=== PATIENT | female | born 1955 | race Hispanic/Latino ===

== ENCOUNTER 2019-06-04 10:49 | Emergency (ER) | payer OTHER ==
[~2019-06-04] VITALS: Ht 154.9 cm; Wt 96.0 kg
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
[2019-06-04] MEDS ORDERED: ULTRAM 50MG50 MG PO (23:31)
== END 2019-06-04 14:35 | disposition home or self-care (01) ==
LOC: FSED 10:49
DX: M54.2 Cervicalgia (principal); M25.522 Pain in left elbow; M79.622 Pain in left upper arm; V43.52XA Car driver injured in collision with other type car in traffic accident, initial encounter; Y92.488 Other paved roadways as the place of occurrence of the external cause
CPT/HCPCS: 72125; 99283

== ENCOUNTER 2019-06-04 20:10 | Emergency (ER) | payer OTHER ==
[~2019-06-04] VITALS: Ht 154.9 cm; Wt 95.7 kg
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
--- NOTE | 2019-06-04 22:33 | NUR ---
patient taken to mri
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
[2019-06-04] MEDS ORDERED: ULTRAM 50MG50 MG PO (23:31)
[2019-06-05 01:29] VITALS: BP 121/91
== END 2019-06-05 01:47 | disposition home or self-care (01) ==
LOC: ER 20:10
DX: M54.2 Cervicalgia (principal); S13.4XXA Sprain of ligaments of cervical spine, initial encounter; M54.12 Radiculopathy, cervical region; V43.52XA Car driver injured in collision with other type car in traffic accident, initial encounter; Y92.488 Other paved roadways as the place of occurrence of the external cause
CPT/HCPCS: 72141; 99284

== ENCOUNTER 2020-11-22 17:25 | Inpatient (IN) | payer OTHER ==
[~2020-11-22] VITALS: Ht 160 cm; Wt 88.9 kg
[~2020-11-22 17:25] MED LIST: ULTRAM 50MG50 MG PO
[2020-11-22] MEDS ORDERED: AZITHROMYCIN 500MG/NS 250 ML 250 ML IV ONE (17:45)
[2020-11-22] MEDS ORDERED: CEFTRIAXONE SOD 1 GM/NS 50 ML 50 ML IV ONE (17:45)
[2020-11-22] MEDS ORDERED: ACETAMINOPHEN 325 MG TAB PO ONE (17:45)
[2020-11-22] MEDS ORDERED: DEXAMETHASONE SOD PHOS 10 MG/1 ML VIAL IV NR (17:45)
[2020-11-22 18:34] LABS: BASOPHILS % 0.1 % (0.0-1.0); HEMATOCRIT 39.1 % (34.2-44.1); HEMOGLOBIN 12.9 g/dL (12.0-16.0); LYMPHOCYTES # (AUTO) 1.2 (1.0-3.2); LYMPHOCYTES % 14.5 % (18.0-39.1); MEAN CORPUSCULAR HEMOGLOBIN 29.7 pg (28-32); MEAN CORPUSCULAR VOLUME 90.1 fL (81-99); MONOCYTES # (AUTO) 0.4 (0.2-0.8); MONOCYTES % 4.2 % (4.4-11.3); NEUTROPHILS # (AUTO) 6.7 (2.1-6.9); NEUTROPHILS % 80.2 % (38.7-80.0); PLATELET COUNT 181 x10e3/uL (140-360); RED BLOOD COUNT 4.34 x10e6/uL (3.6-5.1); RED CELL DISTRIBUTION WIDTH 12.1 % (11.7-14.4)
[2020-11-22 18:40] LABS: CLARITY,URINE SL CLOUDY (CLEAR); COLOR,URINE YELLOW (YELLOW); LEUKOCYTE ESTERASE ,URINE NEGATIVE (NEGATIVE); NITRITE,URINE NEGATIVE (NEGATIVE)
[2020-11-22 18:41] LABS: KETONES,URINE NEGATIVE (NEGATIVE); PROTEIN,URINE DIPSTICK 2+ (NEGATIVE); URINE UROBILINOGEN 1 mg/dL (0.2 - 1)
[2020-11-22 18:49] LABS: ALANINE AMINOTRANSFERASE 61 IU/L (0-55); ALBUMIN 3.1 g/dL (3.5-5.0); ALBUMIN/GLOBULIN RATIO 0.7 (0.8-2.0); ALKALINE PHOSPHATASE 85 IU/L (40-150); ANION GAP 14.5 mmol/L (8-16); BLOOD UREA NITROGEN < 5 mg/dL (7-26); CALCIUM 8.4 mg/dL (8.4-10.2); CARBON DIOXIDE 25 mmol/L (22-29); CHLORIDE 96 mmol/L (98-107); CREATINE KINASE 63 IU/L (29-168); CREATININE, SERUM 0.59 mg/dL (0.57-1.11); EST GLOMERULAR FILTRATION RATE > 60 ML/MIN (60-); GLUCOSE 109 mg/dL (74-118); POTASSIUM 3.5 mmol/L (3.5-5.1); SODIUM 132 mmol/L (136-145)
[2020-11-22 18:51] LABS: BUN/CREATININE RATIO 8 (6-25)
[2020-11-22] MEDS ORDERED: CEFTRIAXONE SOD 1 GM VIAL ONE (18:51)
[2020-11-22 18:56] LABS: BACTERIA,URINE FEW /HPF
[2020-11-22] MEDS ORDERED: ONDANSETRON HCL INJ 2MG/ML 2ML 2 MG/ML VIAL IV PRN (22:30)
[2020-11-22] MEDS ORDERED: SODIUM CHLORIDE 0.9% 1000ML 1,000 ML IV ONE (22:30)
[2020-11-23] VITALS (12 sets, daily range): BP systolic 130–162; BP diastolic 73–111
[2020-11-23] MEDS ORDERED: MONTELUKAST SOD10 MG PO (01:09)
[2020-11-23] MEDS ORDERED: CETIRIZINE HCL10 MG PO (01:09)
[2020-11-23] MEDS ORDERED: METFORMIN HCL500 MG PO (01:09)
[2020-11-23] MEDS ORDERED: SYMBICORT 80-10.2 GM INH (01:09)
[2020-11-23 04:51] LABS: HEMATOCRIT 40.1 % (34.2-44.1); HEMOGLOBIN 13.1 g/dL (12.0-16.0); LYMPHOCYTES # (AUTO) 0.9 (1.0-3.2); LYMPHOCYTES % 16.2 % (18.0-39.1); MEAN CORPUSCULAR HEMOGLOBIN 29.5 pg (28-32); MEAN CORPUSCULAR HGB CONC 32.7 g/dL (31-35); MEAN CORPUSCULAR VOLUME 90.3 fL (81-99); MONOCYTES # (AUTO) 0.1 (0.2-0.8); MONOCYTES % 1.8 % (4.4-11.3); NEUTROPHILS # (AUTO) 4.5 (2.1-6.9); NEUTROPHILS % 81.5 % (38.7-80.0); PLATELET COUNT 196 x10e3/uL (140-360); RED BLOOD COUNT 4.44 x10e6/uL (3.6-5.1); RED CELL DISTRIBUTION WIDTH 11.9 % (11.7-14.4)
[2020-11-23 05:07] LABS: ALANINE AMINOTRANSFERASE 57 IU/L (0-55); ALBUMIN 2.7 g/dL (3.5-5.0); ALBUMIN/GLOBULIN RATIO 0.6 (0.8-2.0); ALKALINE PHOSPHATASE 80 IU/L (40-150); BLOOD UREA NITROGEN 8 mg/dL (7-26); BUN/CREATININE RATIO 14 (6-25); CALCIUM 8.5 mg/dL (8.4-10.2); CARBON DIOXIDE 25 mmol/L (22-29); CHLORIDE 103 mmol/L (98-107); CREATININE, SERUM 0.58 mg/dL (0.57-1.11); EST GLOMERULAR FILTRATION RATE > 60 ML/MIN (60-); GLUCOSE 145 mg/dL (74-118); SODIUM 138 mmol/L (136-145)
[2020-11-23 05:46] LABS: CREATINE KINASE MB 0.7 ng/mL (0-5.0)
[2020-11-23 07:03] LABS: LYMPHOCYTES % (MANUAL) 10 % (19-48); NEUTROPHILS % (MANUAL) 87 % (40-74); PLATELET ESTIMATE ADEQUATE; PLATELET MORPHOLOGY COMMENT NORMAL; RBC MORPHOLOGY COMMENT NORMAL
[2020-11-23 07:04] LABS: MONOCYTES % (MANUAL) 1 % (3.4-9.0)
[2020-11-23] MEDS: ZINC SULFATE 220 MG CAP PO SCH (08:39)
[2020-11-23] MEDS: ASCORBIC ACID 500 MG TAB PO SCH ×2 (08:39→16:29)
[2020-11-23] MEDS: CEFTRIAXONE SOD 2 GM/NS 100 ML 100 ML IV SCH (08:39)
[2020-11-23] MEDS ORDERED: ENOXAPARIN INJ 80 MG/0.8 ML SYR SC SCH (09:00)
[2020-11-23] MEDS: AZITHROMYCIN 500MG/NS 250 ML 250 ML IV SCH (09:45)
[2020-11-23] MEDS ORDERED: NON-FORMULARY MEDICATION (Cetirizine Hcl 10 MG) PO PRN (10:45)
[2020-11-23] MEDS ORDERED: DEXTROSE 50% SYRINGE 50 ML IV PRN (11:00)
[2020-11-23] MEDS ORDERED: LORATADINE 10 MG TAB PO PRN (11:00)
[2020-11-23] MEDS ORDERED: ACETAMINOPHEN 325 MG TAB PO PRN (11:00)
[2020-11-23] MEDS: INSULIN LISPRO 100 UNIT/1 ML 3ML VIAL SQ SCH ×3 (11:30→20:36)
[2020-11-23] MEDS: ENOXAPARIN 30 MG/0.3 ML SYR SC SCH ×2 (12:26→20:39)
[2020-11-23] MEDS ORDERED: REMDESIVIR 200MG/NS 100ML 200 MG IV ONE (14:00)
[2020-11-23] MEDS: MONTELUKAST SODIUM 10 MG TAB PO SCH (14:08)
[2020-11-23 14:51] LABS: CREATINE KINASE MB 0.6 ng/mL (0-5.0)
[2020-11-23] MEDS: BUDESONIDE/FORMOTEROL FUMARATE 80/4.5MCG 6.9 GM INH AEROSOL IH SCH (20:00)
[2020-11-24] VITALS (9 sets, daily range): BP systolic 147–185; BP diastolic 90–103
[2020-11-24 04:47] LABS: BASOPHILS % 0.1 % (0.0-1.0); HEMOGLOBIN 12.4 g/dL (12.0-16.0); LYMPHOCYTES # (AUTO) 1.9 (1.0-3.2); LYMPHOCYTES % 18.3 % (18.0-39.1); MEAN CORPUSCULAR HEMOGLOBIN 29.3 pg (28-32); MEAN CORPUSCULAR HGB CONC 32.6 g/dL (31-35); MEAN CORPUSCULAR VOLUME 89.8 fL (81-99); MONOCYTES # (AUTO) 0.5 (0.2-0.8); NEUTROPHILS # (AUTO) 7.8 (2.1-6.9); NEUTROPHILS % 75.8 % (38.7-80.0); PLATELET COUNT 234 x10e3/uL (140-360); RED BLOOD COUNT 4.23 x10e6/uL (3.6-5.1); RED CELL DISTRIBUTION WIDTH 12.1 % (11.7-14.4)
[2020-11-24 05:12] LABS: ALANINE AMINOTRANSFERASE 41 IU/L (0-55); ALBUMIN 2.6 g/dL (3.5-5.0); ALBUMIN/GLOBULIN RATIO 0.6 (0.8-2.0); ALKALINE PHOSPHATASE 77 IU/L (40-150); ANION GAP 14.6 mmol/L (8-16); BLOOD UREA NITROGEN 12 mg/dL (7-26); BUN/CREATININE RATIO 21 (6-25); CALCIUM 8.3 mg/dL (8.4-10.2); CARBON DIOXIDE 23 mmol/L (22-29); CHLORIDE 102 mmol/L (98-107); CREATININE, SERUM 0.58 mg/dL (0.57-1.11); EST GLOMERULAR FILTRATION RATE > 60 ML/MIN (60-); GLUCOSE 101 mg/dL (74-118); POTASSIUM 3.6 mmol/L (3.5-5.1); SODIUM 136 mmol/L (136-145)
[2020-11-24] MEDS: BUDESONIDE/FORMOTEROL FUMARATE 80/4.5MCG 6.9 GM INH AEROSOL IH SCH ×2 (06:33→19:00)
[2020-11-24] MEDS: INSULIN LISPRO 100 UNIT/1 ML 3ML VIAL SQ SCH ×4 (07:30→21:00)
[2020-11-24 07:35] LABS: BAND NEUTROPHILS % (MANUAL) 1 %; LYMPHOCYTES % (MANUAL) 27 % (19-48); MONOCYTES % (MANUAL) 3 % (3.4-9.0); NEUTROPHILS % (MANUAL) 69 % (40-74); PLATELET ESTIMATE ADEQUATE; PLATELET MORPHOLOGY COMMENT NORMAL; RBC MORPHOLOGY COMMENT NORMAL
[2020-11-24] MEDS: MONTELUKAST SODIUM 10 MG TAB PO SCH (08:10)
[2020-11-24] MEDS: ASCORBIC ACID 500 MG TAB PO SCH ×2 (08:10→17:50)
[2020-11-24] MEDS: ENOXAPARIN 30 MG/0.3 ML SYR SC SCH ×2 (08:10→21:32)
[2020-11-24] MEDS: AZITHROMYCIN 500MG/NS 250 ML 250 ML IV SCH (08:10)
[2020-11-24] MEDS: ZINC SULFATE 220 MG CAP PO SCH (08:10)
[2020-11-24] MEDS: CEFTRIAXONE SOD 2 GM/NS 100 ML 100 ML IV SCH (09:48)
[2020-11-24] MEDS ORDERED: LOSARTAN POTASSIUM 25 MG TAB PO PRN (11:00)
[2020-11-24] MEDS: REMDESIVIR 100MG/NS 100ML 100 MG IV SCH (13:44)
[2020-11-25] VITALS (8 sets, daily range): BP systolic 143–161; BP diastolic 85–95
[2020-11-25 05:16] LABS: BASOPHILS % 0.3 % (0.0-1.0); EOSINOPHILS % 0.1 % (0.0-6.0); HEMATOCRIT 40.2 % (34.2-44.1); HEMOGLOBIN 13.2 g/dL (12.0-16.0); LYMPHOCYTES # (AUTO) 2.6 (1.0-3.2); LYMPHOCYTES % 37.6 % (18.0-39.1); MEAN CORPUSCULAR HEMOGLOBIN 29.3 pg (28-32); MEAN CORPUSCULAR HGB CONC 32.8 g/dL (31-35); MEAN CORPUSCULAR VOLUME 89.3 fL (81-99); MONOCYTES # (AUTO) 0.5 (0.2-0.8); MONOCYTES % 7.6 % (4.4-11.3); NEUTROPHILS # (AUTO) 3.6 (2.1-6.9); NEUTROPHILS % 52.8 % (38.7-80.0); PLATELET COUNT 266 x10e3/uL (140-360); RED CELL DISTRIBUTION WIDTH 12.2 % (11.7-14.4)
[2020-11-25 05:40] LABS: ALANINE AMINOTRANSFERASE 34 IU/L (0-55); ALBUMIN 2.7 g/dL (3.5-5.0); ALBUMIN/GLOBULIN RATIO 0.6 (0.8-2.0); ALKALINE PHOSPHATASE 77 IU/L (40-150); ANION GAP 14.5 mmol/L (8-16); BLOOD UREA NITROGEN 11 mg/dL (7-26); BUN/CREATININE RATIO 19 (6-25); CALCIUM 8.5 mg/dL (8.4-10.2); CARBON DIOXIDE 24 mmol/L (22-29); CHLORIDE 100 mmol/L (98-107); CREATININE, SERUM 0.58 mg/dL (0.57-1.11); EST GLOMERULAR FILTRATION RATE > 60 ML/MIN (60-); GLUCOSE 94 mg/dL (74-118); POTASSIUM 3.5 mmol/L (3.5-5.1); SODIUM 135 mmol/L (136-145)
[2020-11-25] MEDS: INSULIN LISPRO 100 UNIT/1 ML 3ML VIAL SQ SCH ×4 (07:30→21:00)
[2020-11-25] MEDS: AZITHROMYCIN 500MG/NS 250 ML 250 ML IV SCH (09:05)
[2020-11-25] MEDS: MONTELUKAST SODIUM 10 MG TAB PO SCH (09:05)
[2020-11-25] MEDS: ASCORBIC ACID 500 MG TAB PO SCH ×2 (09:05→15:55)
[2020-11-25] MEDS: ENOXAPARIN 30 MG/0.3 ML SYR SC SCH ×2 (09:06→21:34)
[2020-11-25] MEDS: ZINC SULFATE 220 MG CAP PO SCH (09:06)
[2020-11-25] MEDS: CEFTRIAXONE SOD 2 GM/NS 100 ML 100 ML IV SCH (11:48)
[2020-11-25] MEDS: BUDESONIDE/FORMOTEROL FUMARATE 80/4.5MCG 6.9 GM INH AEROSOL IH SCH ×2 (11:49→19:00)
[2020-11-25] MEDS: REMDESIVIR 100MG/NS 100ML 100 MG IV SCH (14:40)
[2020-11-26] VITALS (8 sets, daily range): BP systolic 141–158; BP diastolic 78–88
[2020-11-26] MEDS: BUDESONIDE/FORMOTEROL FUMARATE 80/4.5MCG 6.9 GM INH AEROSOL IH SCH ×2 (07:00→19:00)
[2020-11-26] MEDS: INSULIN LISPRO 100 UNIT/1 ML 3ML VIAL SQ SCH ×4 (07:30→20:17)
[2020-11-26] MEDS: ASCORBIC ACID 500 MG TAB PO SCH ×2 (09:08→17:16)
[2020-11-26] MEDS: ENOXAPARIN 30 MG/0.3 ML SYR SC SCH ×2 (09:08→20:22)
[2020-11-26] MEDS: ZINC SULFATE 220 MG CAP PO SCH (09:08)
[2020-11-26] MEDS: MONTELUKAST SODIUM 10 MG TAB PO SCH (09:08)
[2020-11-26] MEDS: CEFTRIAXONE SOD 2 GM/NS 100 ML 100 ML IV SCH (09:08)
[2020-11-26] MEDS: REMDESIVIR 100MG/NS 100ML 100 MG IV SCH (14:14)
[2020-11-27] VITALS (8 sets, daily range): BP systolic 118–148; BP diastolic 69–81
[2020-11-27 05:43] LABS: BASOPHILS % 0.4 % (0.0-1.0); EOSINOPHILS # (AUTO) 0.1 (0.0-0.4); EOSINOPHILS % 0.9 % (0.0-6.0); HEMATOCRIT 37.4 % (34.2-44.1); HEMOGLOBIN 12.5 g/dL (12.0-16.0); LYMPHOCYTES # (AUTO) 2.1 (1.0-3.2); LYMPHOCYTES % 31.6 % (18.0-39.1); MEAN CORPUSCULAR HGB CONC 33.4 g/dL (31-35); MEAN CORPUSCULAR VOLUME 89.7 fL (81-99); MONOCYTES # (AUTO) 0.5 (0.2-0.8); MONOCYTES % 7.7 % (4.4-11.3); NEUTROPHILS % 58.4 % (38.7-80.0); PLATELET COUNT 326 x10e3/uL (140-360); RED BLOOD COUNT 4.17 x10e6/uL (3.6-5.1); RED CELL DISTRIBUTION WIDTH 11.9 % (11.7-14.4)
[2020-11-27 06:16] LABS: ALANINE AMINOTRANSFERASE 20 IU/L (0-55); ALBUMIN 2.6 g/dL (3.5-5.0); ALBUMIN/GLOBULIN RATIO 0.7 (0.8-2.0); ALKALINE PHOSPHATASE 68 IU/L (40-150); ANION GAP 12.7 mmol/L (8-16); BLOOD UREA NITROGEN 12 mg/dL (7-26); BUN/CREATININE RATIO 21 (6-25); CALCIUM 8.1 mg/dL (8.4-10.2); CARBON DIOXIDE 25 mmol/L (22-29); CHLORIDE 102 mmol/L (98-107); CREATININE, SERUM 0.56 mg/dL (0.57-1.11); EST GLOMERULAR FILTRATION RATE > 60 ML/MIN (60-); GLUCOSE 87 mg/dL (74-118); POTASSIUM 3.7 mmol/L (3.5-5.1); SODIUM 136 mmol/L (136-145)
[2020-11-27] MEDS: BUDESONIDE/FORMOTEROL FUMARATE 80/4.5MCG 6.9 GM INH AEROSOL IH SCH ×2 (07:00→08:00)
[2020-11-27] MEDS: INSULIN LISPRO 100 UNIT/1 ML 3ML VIAL SQ SCH ×4 (07:04→21:00)
[2020-11-27] MEDS: ZINC SULFATE 220 MG CAP PO SCH (08:10)
[2020-11-27] MEDS: MONTELUKAST SODIUM 10 MG TAB PO SCH (08:10)
[2020-11-27] MEDS: CEFTRIAXONE SOD 2 GM/NS 100 ML 100 ML IV SCH (08:10)
[2020-11-27] MEDS: ASCORBIC ACID 500 MG TAB PO SCH ×2 (08:10→17:45)
[2020-11-27] MEDS: ENOXAPARIN 30 MG/0.3 ML SYR SC SCH ×2 (08:10→21:36)
[2020-11-27] MEDS: REMDESIVIR 100MG/NS 100ML 100 MG IV SCH (14:15)
[2020-11-28] VITALS (8 sets, daily range): BP systolic 119–150; BP diastolic 60–75
[2020-11-28 05:00] LABS: BASOPHILS % 0.4 % (0.0-1.0); EOSINOPHILS # (AUTO) 0.1 (0.0-0.4); EOSINOPHILS % 1.1 % (0.0-6.0); HEMATOCRIT 38.6 % (34.2-44.1); HEMOGLOBIN 12.1 g/dL (12.0-16.0); LYMPHOCYTES % 27.1 % (18.0-39.1); MEAN CORPUSCULAR HGB CONC 31.3 g/dL (31-35); MEAN CORPUSCULAR VOLUME 92.6 fL (81-99); MONOCYTES # (AUTO) 0.5 (0.2-0.8); MONOCYTES % 7.4 % (4.4-11.3); NEUTROPHILS # (AUTO) 4.6 (2.1-6.9); NEUTROPHILS % 63.2 % (38.7-80.0); PLATELET COUNT 295 x10e3/uL (140-360); RED BLOOD COUNT 4.17 x10e6/uL (3.6-5.1); RED CELL DISTRIBUTION WIDTH 12.1 % (11.7-14.4)
[2020-11-28 05:39] LABS: ALANINE AMINOTRANSFERASE 30 IU/L (0-55); ALBUMIN 2.4 g/dL (3.5-5.0); ALBUMIN/GLOBULIN RATIO 0.6 (0.8-2.0); ALKALINE PHOSPHATASE 65 IU/L (40-150); ANION GAP 13.7 mmol/L (8-16); BLOOD UREA NITROGEN 12 mg/dL (7-26); BUN/CREATININE RATIO 24 (6-25); CALCIUM 7.9 mg/dL (8.4-10.2); CARBON DIOXIDE 24 mmol/L (22-29); CHLORIDE 103 mmol/L (98-107); CREATININE, SERUM 0.51 mg/dL (0.57-1.11); EST GLOMERULAR FILTRATION RATE > 60 ML/MIN (60-); GLUCOSE 92 mg/dL (74-118); POTASSIUM 3.7 mmol/L (3.5-5.1); SODIUM 137 mmol/L (136-145)
[2020-11-28] MEDS: INSULIN LISPRO 100 UNIT/1 ML 3ML VIAL SQ SCH ×4 (07:30→20:30)
[2020-11-28] MEDS: BUDESONIDE/FORMOTEROL FUMARATE 80/4.5MCG 6.9 GM INH AEROSOL IH SCH (08:00)
[2020-11-28] MEDS: ZINC SULFATE 220 MG CAP PO SCH (09:36)
[2020-11-28] MEDS: MONTELUKAST SODIUM 10 MG TAB PO SCH (09:36)
[2020-11-28] MEDS: DEXAMETHASONE SOD PHOS 10 MG/1 ML VIAL IV SCH (09:36)
[2020-11-28] MEDS: ASCORBIC ACID 500 MG TAB PO SCH ×2 (09:36→16:20)
[2020-11-28] MEDS: ENOXAPARIN 30 MG/0.3 ML SYR SC SCH ×2 (09:36→20:38)
[2020-11-29] VITALS (8 sets, daily range): BP systolic 113–140; BP diastolic 68–99
[2020-11-29 05:30] LABS: BASOPHILS % 0.3 % (0.0-1.0); EOSINOPHILS % 0.3 % (0.0-6.0); HEMATOCRIT 39.4 % (34.2-44.1); HEMOGLOBIN 12.9 g/dL (12.0-16.0); LYMPHOCYTES # (AUTO) 2.3 (1.0-3.2); LYMPHOCYTES % 24.3 % (18.0-39.1); MEAN CORPUSCULAR HEMOGLOBIN 29.1 pg (28-32); MEAN CORPUSCULAR HGB CONC 32.7 g/dL (31-35); MEAN CORPUSCULAR VOLUME 88.7 fL (81-99); MONOCYTES # (AUTO) 0.8 (0.2-0.8); MONOCYTES % 8.3 % (4.4-11.3); NEUTROPHILS # (AUTO) 6.3 (2.1-6.9); NEUTROPHILS % 65.8 % (38.7-80.0); PLATELET COUNT 390 x10e3/uL (140-360); RED BLOOD COUNT 4.44 x10e6/uL (3.6-5.1); RED CELL DISTRIBUTION WIDTH 11.9 % (11.7-14.4)
[2020-11-29 05:47] LABS: ALANINE AMINOTRANSFERASE 51 IU/L (0-55); ALBUMIN/GLOBULIN RATIO 0.7 (0.8-2.0); ALKALINE PHOSPHATASE 76 IU/L (40-150); ANION GAP 14.1 mmol/L (8-16); BLOOD UREA NITROGEN 12 mg/dL (7-26); BUN/CREATININE RATIO 21 (6-25); CALCIUM 8.5 mg/dL (8.4-10.2); CARBON DIOXIDE 23 mmol/L (22-29); CHLORIDE 104 mmol/L (98-107); CREATININE, SERUM 0.58 mg/dL (0.57-1.11); EST GLOMERULAR FILTRATION RATE > 60 ML/MIN (60-); GLUCOSE 97 mg/dL (74-118); POTASSIUM 4.1 mmol/L (3.5-5.1); SODIUM 137 mmol/L (136-145)
[2020-11-29] MEDS: BUDESONIDE/FORMOTEROL FUMARATE 80/4.5MCG 6.9 GM INH AEROSOL IH SCH (07:21)
[2020-11-29] MEDS: INSULIN LISPRO 100 UNIT/1 ML 3ML VIAL SQ SCH ×4 (07:30→20:14)
[2020-11-29] MEDS: ZINC SULFATE 220 MG CAP PO SCH (08:57)
[2020-11-29] MEDS: ASCORBIC ACID 500 MG TAB PO SCH ×2 (08:57→17:16)
[2020-11-29] MEDS: MONTELUKAST SODIUM 10 MG TAB PO SCH (08:57)
[2020-11-29] MEDS: DEXAMETHASONE SOD PHOS 10 MG/1 ML VIAL IV SCH (08:57)
[2020-11-29] MEDS: ENOXAPARIN 30 MG/0.3 ML SYR SC SCH ×2 (08:57→20:42)
[2020-11-29] MEDS ORDERED: SODIUM CHLORIDE 0.9% 250ML 250 ML ONE (16:36)
[2020-11-29] MEDS: PIPER-TAZ 3.375 GM 50 ML IV SCH ×2 (17:16→23:44)
[2020-11-30] VITALS (7 sets, daily range): BP systolic 111–135; BP diastolic 68–78
[2020-11-30 04:54] LABS: BASOPHILS % 0.1 % (0.0-1.0); EOSINOPHILS # (AUTO) 0.1 (0.0-0.4); EOSINOPHILS % 0.6 % (0.0-6.0); HEMATOCRIT 38.7 % (34.2-44.1); HEMOGLOBIN 12.7 g/dL (12.0-16.0); LYMPHOCYTES # (AUTO) 2.4 (1.0-3.2); LYMPHOCYTES % 28.3 % (18.0-39.1); MEAN CORPUSCULAR HEMOGLOBIN 29.2 pg (28-32); MEAN CORPUSCULAR HGB CONC 32.8 g/dL (31-35); MONOCYTES # (AUTO) 0.5 (0.2-0.8); MONOCYTES % 6.4 % (4.4-11.3); NEUTROPHILS # (AUTO) 5.4 (2.1-6.9); PLATELET COUNT 443 x10e3/uL (140-360); RED BLOOD COUNT 4.35 x10e6/uL (3.6-5.1); RED CELL DISTRIBUTION WIDTH 11.9 % (11.7-14.4)
[2020-11-30 05:10] LABS: ANION GAP 12.1 mmol/L (8-16); BLOOD UREA NITROGEN 14 mg/dL (7-26); BUN/CREATININE RATIO 23 (6-25); CALCIUM 8.5 mg/dL (8.4-10.2); CARBON DIOXIDE 25 mmol/L (22-29); CHLORIDE 104 mmol/L (98-107); CREATININE, SERUM 0.62 mg/dL (0.57-1.11); EST GLOMERULAR FILTRATION RATE > 60 ML/MIN (60-); GLUCOSE 87 mg/dL (74-118); POTASSIUM 4.1 mmol/L (3.5-5.1); SODIUM 137 mmol/L (136-145)
[2020-11-30] MEDS: PIPER-TAZ 3.375 GM 50 ML IV SCH ×4 (05:16→23:46)
[2020-11-30] MEDS: INSULIN LISPRO 100 UNIT/1 ML 3ML VIAL SQ SCH ×4 (07:30→19:48)
[2020-11-30] MEDS: BUDESONIDE/FORMOTEROL FUMARATE 80/4.5MCG 6.9 GM INH AEROSOL IH SCH (08:00)
[2020-11-30] MEDS: ZINC SULFATE 220 MG CAP PO SCH (08:53)
[2020-11-30] MEDS: DEXAMETHASONE SOD PHOS 10 MG/1 ML VIAL IV SCH (08:53)
[2020-11-30] MEDS: ASCORBIC ACID 500 MG TAB PO SCH ×2 (08:53→16:53)
[2020-11-30] MEDS: MONTELUKAST SODIUM 10 MG TAB PO SCH (08:53)
[2020-11-30] MEDS: ENOXAPARIN 30 MG/0.3 ML SYR SC SCH (08:53)
[2020-12-01] VITALS (8 sets, daily range): BP systolic 128–145; BP diastolic 63–79
[2020-12-01] MEDS: PIPER-TAZ 3.375 GM 50 ML IV SCH ×3 (06:08→17:03)
[2020-12-01] MEDS: INSULIN LISPRO 100 UNIT/1 ML 3ML VIAL SQ SCH ×4 (07:30→21:00)
[2020-12-01] MEDS: BUDESONIDE/FORMOTEROL FUMARATE 80/4.5MCG 6.9 GM INH AEROSOL IH SCH ×2 (08:00→20:20)
[2020-12-01] MEDS: DEXAMETHASONE SOD PHOS 10 MG/1 ML VIAL IV SCH (09:13)
[2020-12-01] MEDS: ASCORBIC ACID 500 MG TAB PO SCH ×2 (09:14→16:46)
[2020-12-01] MEDS: MONTELUKAST SODIUM 10 MG TAB PO SCH (09:14)
[2020-12-01] MEDS: ZINC SULFATE 220 MG CAP PO SCH (09:14)
[2020-12-01] MEDS: ENOXAPARIN SOD INJ 40 MG/0.4 ML SYR SC SCH (17:03)
[2020-12-02] VITALS (8 sets, daily range): BP systolic 126–138; BP diastolic 63–86
[2020-12-02] MEDS: PIPER-TAZ 3.375 GM 50 ML IV SCH ×4 (00:04→17:29)
[2020-12-02] MEDS: ENOXAPARIN SOD INJ 40 MG/0.4 ML SYR SC SCH ×2 (06:37→17:29)
[2020-12-02] MEDS: INSULIN LISPRO 100 UNIT/1 ML 3ML VIAL SQ SCH ×4 (07:30→21:00)
[2020-12-02] MEDS: BUDESONIDE/FORMOTEROL FUMARATE 80/4.5MCG 6.9 GM INH AEROSOL IH SCH ×2 (08:00→19:00)
[2020-12-02] MEDS: ASCORBIC ACID 500 MG TAB PO SCH ×2 (09:10→16:47)
[2020-12-02] MEDS: ZINC SULFATE 220 MG CAP PO SCH (09:10)
[2020-12-02] MEDS: DEXAMETHASONE SOD PHOS 10 MG/1 ML VIAL IV SCH (09:10)
[2020-12-02] MEDS: MONTELUKAST SODIUM 10 MG TAB PO SCH (09:10)
[2020-12-03] VITALS (9 sets, daily range): BP systolic 112–141; BP diastolic 60–83
[2020-12-03] MEDS: PIPER-TAZ 3.375 GM 50 ML IV SCH ×4 (05:10→17:03)
[2020-12-03] MEDS: ENOXAPARIN SOD INJ 40 MG/0.4 ML SYR SC SCH ×2 (05:47→17:03)
[2020-12-03] MEDS: INSULIN LISPRO 100 UNIT/1 ML 3ML VIAL SQ SCH ×4 (07:30→21:00)
[2020-12-03] MEDS: MONTELUKAST SODIUM 10 MG TAB PO SCH (09:04)
[2020-12-03] MEDS: ASCORBIC ACID 500 MG TAB PO SCH ×2 (09:04→17:03)
[2020-12-03] MEDS: DEXAMETHASONE SOD PHOS 10 MG/1 ML VIAL IV SCH (09:04)
[2020-12-03] MEDS: ZINC SULFATE 50 MG CAP PO SCH (09:04)
[2020-12-03] MEDS: BUDESONIDE/FORMOTEROL FUMARATE 80/4.5MCG 6.9 GM INH AEROSOL IH SCH ×2 (12:17→19:00)
[2020-12-04] VITALS (8 sets, daily range): BP systolic 115–132; BP diastolic 63–90
[2020-12-04] MEDS: PIPER-TAZ 3.375 GM 50 ML IV SCH ×4 (00:07→16:49)
[2020-12-04] MEDS: ENOXAPARIN SOD INJ 40 MG/0.4 ML SYR SC SCH ×2 (05:05→16:50)
[2020-12-04] MEDS: INSULIN LISPRO 100 UNIT/1 ML 3ML VIAL SQ SCH ×4 (07:30→21:00)
[2020-12-04] MEDS: ZINC SULFATE 50 MG CAP PO SCH (09:23)
[2020-12-04] MEDS: MONTELUKAST SODIUM 10 MG TAB PO SCH (09:23)
[2020-12-04] MEDS: BUDESONIDE/FORMOTEROL FUMARATE 80/4.5MCG 6.9 GM INH AEROSOL IH SCH ×2 (09:23→17:36)
[2020-12-04] MEDS: ASCORBIC ACID 500 MG TAB PO SCH ×2 (10:48→16:49)
[2020-12-04] MEDS: ALBUTEROL SULFATE HFA 8GM INHALATION AEROSOL INH PRN ×2 (12:00→17:36)
== END 2020-12-04 20:50 | disposition home or self-care (01) | DRG 177 ==
LOC: ER 17:44 → ERHOLD 22:33 → IMCU 11-23 00:22
PROVIDERS: ADMIT Family Medicine; ATTEND Family Medicine
PROC: 8E0ZXY6 Isolation (ICD-10-PCS; principal; 2020-11-22)
PROC: XW033E5 Introduction of Remdesivir Anti-infective into Peripheral Vein, Percutaneous Approach, New Technology Group 5 (ICD-10-PCS; 2020-11-23)
DX: U07.1 COVID-19 (principal); J12.9 Viral pneumonia, unspecified; J96.00 Acute respiratory failure, unspecified whether with hypoxia or hypercapnia; J12.82 Pneumonia due to coronavirus disease 2019; J96.91 Respiratory failure, unspecified with hypoxia; J15.9 Unspecified bacterial pneumonia; E11.9 Type 2 diabetes mellitus without complications; I10 Essential (primary) hypertension; E66.9 Obesity, unspecified; Z68.34 Body mass index [BMI] 34.0-34.9, adult; R09.02 Hypoxemia
CPT/HCPCS: 36415; 71045; 80048; 80053; 81001; 82550; 82553; 82948; 83605; 84484; 85025; 87040; 87086; 93005; 99285; J0456; J0696; J1100; J1650; J2543; J7030; J7050; U0002

== ENCOUNTER 2021-01-05 17:15 | Emergency (ER) | payer OTHER ==
[~2021-01-05] VITALS: Ht 160 cm; Wt 85.7 kg
[~2021-01-05 17:15] MED LIST changes: +CETIRIZINE HCL10 MG PO; +METFORMIN HCL500 MG PO; +MONTELUKAST SOD10 MG PO; +SYMBICORT 80-10.2 GM INH
[2021-01-05] MEDS ORDERED: ACETAMINOPHEN 325 MG TAB ONE (18:02)
[2021-01-05] MEDS: ACETAMINOPHEN 325 MG TAB PO ONE (18:02)
[2021-01-05] MEDS: ASPIRIN 81 MG CHEW TAB PO ONE (18:02)
[2021-01-05] MEDS ORDERED: ASPIRIN 81 MG CHEW TAB ONE (18:02)
[2021-01-05] MEDS ORDERED: METOPROLOL TARTRATE INJ 1 MG/ML VIAL ONE (18:02)
[2021-01-05] MEDS: METOPROLOL TARTRATE INJ 1 MG/ML VIAL IV ONE (18:03)
[2021-01-05] MEDS ORDERED: AMBIEN5 MG PO (19:30)
[2021-01-05] MEDS ORDERED: CEFDINIR300 MG PO (19:30)
[2021-01-05] MEDS ORDERED: PROAIR HFA INH8.5 GM PO (19:30)
[2021-01-05] MEDS ORDERED: PREDNISONE20 MG PO (19:30)
[2021-01-05] MEDS ORDERED: AZITHROMYCIN500 MG PO (19:30)
[2021-01-05 19:45] VITALS: BP 130/68
== END 2021-01-05 19:45 | disposition home or self-care (01) ==
LOC: FSED 17:35
DX: J18.9 Pneumonia, unspecified organism (principal); R50.9 Fever, unspecified; J45.909 Unspecified asthma, uncomplicated; F43.9 Reaction to severe stress, unspecified; G47.00 Insomnia, unspecified; R94.31 Abnormal electrocardiogram [ECG] [EKG]
CPT/HCPCS: 71046; 80053; 82553; 83880; 84484; 85025; 96374; 99284

== ENCOUNTER 2024-12-12 16:49 | Emergency (ER) | payer SELFPAY ==
[~2024-12-12 16:49] MED LIST changes: +AMBIEN5 MG PO; +AZITHROMYCIN500 MG PO; +CEFDINIR300 MG PO; +PREDNISONE20 MG PO; +PROAIR HFA INH8.5 GM PO
== END 2024-12-12 17:51 | disposition short-term general hospital (02) ==
LOC: ER 17:15
DX: M25.519 Pain in unspecified shoulder (principal)

== ENCOUNTER 2024-12-30 23:18 | Inpatient (IN) | payer MEDICARE, OTHER ==
[~2024-12-30] VITALS: Ht 165.1 cm; Wt 83.0 kg
[2024-12-30 23:31] VITALS: PULSE 70; RESP 18; TEMP 98.3
[2024-12-30 23:54] LABS: BASOPHILS % 0.5 % (0.0-1.0); EOSINOPHILS # (AUTO) 0.1 (0.0-0.4); EOSINOPHILS % 1.2 % (0.0-6.0); HEMATOCRIT 34.8 % (34.2-44.1); HEMOGLOBIN 11.9 g/dL (12.0-16.0); LYMPHOCYTES # (AUTO) 3.1 (1.0-3.2); LYMPHOCYTES % 36.1 % (18.0-39.1); MEAN CORPUSCULAR HEMOGLOBIN 31.2 pg (28-32); MEAN CORPUSCULAR HGB CONC 34.2 g/dL (31-35); MEAN CORPUSCULAR VOLUME 91.3 fL (81-99); MONOCYTES # (AUTO) 0.5 (0.2-0.8); NEUTROPHILS # (AUTO) 4.8 (2.1-6.9); NEUTROPHILS % 56.1 % (38.7-80.0); PLATELET COUNT 207 x10e3/uL (140-360); RED BLOOD COUNT 3.81 x10e6/uL (3.6-5.1); RED CELL DISTRIBUTION WIDTH 11.6 % (11.7-14.4); WHITE BLOOD COUNT 8.48 x10e3/uL (4.8-10.8)
[2024-12-31] VITALS (10 sets, daily range): BP systolic 121–153; BP diastolic 67–92; PULSE 66–72; RESP 16–20; TEMP 97.7–98; O2SAT 95–100
[2024-12-31 00:24] LABS: ALBUMIN 3.6 g/dL (3.5-5.0); ALBUMIN/GLOBULIN RATIO 1.4 (0.8-2.0); ANION GAP 15.5 mmol/L (8-16); BILIRUBIN,TOTAL 0.6 mg/dL (0.2-1.2); CREATININE, SERUM 0.72 mg/dL (0.57-1.11); POTASSIUM 4.5 mmol/L (3.5-5.1); TOTAL PROTEIN 6.2 g/dL (6.5-8.1)
[2024-12-31] MEDS: ONDANSETRON HCL INJ 2MG/ML 2ML 2 MG/ML VIAL IV PRN (00:46)
[2024-12-31] MEDS: MECLIZINE HCL 12.5 MG TAB PO ONE (01:12)
[2024-12-31] MEDS ORDERED: SODIUM CHLORIDE FLUSH 10 ML SYR INJ PRN (02:30)
[2024-12-31] MEDS: FUROSEMIDE INJ 10 MG/ML 4 ML VIAL IV ONE (02:53)
[2024-12-31] MEDS ORDERED: LORATADINE 10 MG TAB PO PRN (07:00)
[2024-12-31] MEDS ORDERED: ALBUTEROL/IPRATROPIUM 3 ML NEB NEB PRN (07:00)
[2024-12-31] MEDS ORDERED: MELATONIN 3 MG TAB PO PRN (07:00)
[2024-12-31] MEDS ORDERED: BENZONATATE 100 MG CAP PO PRN (07:00)
[2024-12-31] MEDS ORDERED: GUAIFENESIN/DEXTROMETHORPHAN LIQD 5 ML UDC PO PRN (07:00)
[2024-12-31] MEDS ORDERED: SIMETHICONE 80 MG CHEW PO PRN (07:00)
[2024-12-31] MEDS ORDERED: METOPROLOL TARTRATE INJ 1 MG/ML VIAL IV PRN (07:00)
[2024-12-31] MEDS ORDERED: DOCUSATE SODIUM 100 MG CAP PO PRN (07:00)
[2024-12-31] MEDS ORDERED: DEXTROSE 50% SYRINGE 50 ML IV PRN (07:00)
[2024-12-31] MEDS ORDERED: ZEBETA10 MG PO (07:21)
[2024-12-31] MEDS ORDERED: PRAVASTATIN SOD40 MG PO (07:21)
[2024-12-31] MEDS ORDERED: KETOROLAC60 MG/2 ML PO (07:21)
[2024-12-31] MEDS ORDERED: LISINOPRIL10 MG PO (07:21)
[2024-12-31] MEDS ORDERED: VESICARE5 MG PO (07:21)
[2024-12-31] MEDS: INSULIN REGULAR, HUMAN 100 UNIT/1 ML SQ SCH (07:30)
[2024-12-31 08:02] LABS: BASOPHILS # (AUTO) 0.1 (0.0-0.1); BASOPHILS % 0.7 % (0.0-1.0); EOSINOPHILS # (AUTO) 0.1 (0.0-0.4); EOSINOPHILS % 1.4 % (0.0-6.0); HEMATOCRIT 38.7 % (34.2-44.1); HEMOGLOBIN 13.4 g/dL (12.0-16.0); LYMPHOCYTES # (AUTO) 2.2 (1.0-3.2); LYMPHOCYTES % 30.4 % (18.0-39.1); MEAN CORPUSCULAR HEMOGLOBIN 31.5 pg (28-32); MEAN CORPUSCULAR HGB CONC 34.6 g/dL (31-35); MEAN CORPUSCULAR VOLUME 91.1 fL (81-99); MONOCYTES # (AUTO) 0.5 (0.2-0.8); MONOCYTES % 6.3 % (4.4-11.3); NEUTROPHILS # (AUTO) 4.4 (2.1-6.9); NEUTROPHILS % 60.9 % (38.7-80.0); PLATELET COUNT 232 x10e3/uL (140-360); RED BLOOD COUNT 4.25 x10e6/uL (3.6-5.1); RED CELL DISTRIBUTION WIDTH 11.5 % (11.7-14.4); WHITE BLOOD COUNT 7.28 x10e3/uL (4.8-10.8)
[2024-12-31 08:27] LABS: ANION GAP 15.6 mmol/L (8-16); CALCIUM 9.5 mg/dL (8.4-10.2); CREATININE, SERUM 0.75 mg/dL (0.57-1.11); POTASSIUM 4.6 mmol/L (3.5-5.1)
[2024-12-31 08:43] LABS: PHOSPHORUS 4.9 MG/DL (2.3-4.7)
[2024-12-31] MEDS: FUROSEMIDE INJ 10 MG/ML 4 ML VIAL IV SCH (09:01)
[2024-12-31] MEDS: MONTELUKAST SODIUM 10 MG TAB PO SCH (09:01)
[2024-12-31] MEDS: SODIUM BICARBONATE 650 MG TAB PO SCH (09:01)
[2024-12-31] MEDS: FAMOTIDINE 20 MG TAB PO SCH (09:01)
[2024-12-31 09:36] LABS: TROPONIN I 0.005 ng/mL (0-0.300)
[2024-12-31 09:50] LABS: CHOL/HDL RATIO 3.3 (3.0-3.6)
[2024-12-31 12:43] LABS: CALCIUM 9.1 mg/dL (8.4-10.2); CREATININE, SERUM 0.77 mg/dL (0.57-1.11)
[2024-12-31 16:53] LABS: CREATINE KINASE 111 IU/L (29-168)
[2024-12-31 17:11] LABS: TROPONIN I < 0.001 ng/mL (0-0.300)
[2024-12-31] MEDS: ENOXAPARIN SOD INJ 40 MG/0.4 ML SYR SC SCH (17:28)
[2025-01-01] VITALS (8 sets, daily range): BP systolic 113–142; BP diastolic 74–91; PULSE 72–94; RESP 16–20; TEMP 97.6–98.6; O2SAT 97–100
[2025-01-01 11:59] LABS: CLARITY,URINE CLOUDY (CLEAR); COLOR,URINE RED (YELLOW); GLUCOSE, URINE NEGATIVE (NEGATIVE); KETONES,URINE NEGATIVE (NEGATIVE); LEUKOCYTE ESTERASE ,URINE TRACE (NEGATIVE); NITRITE,URINE NEGATIVE (NEGATIVE); PH,URINE 7 (5 - 7); PROTEIN,URINE DIPSTICK 2+ (NEGATIVE); URINE UROBILINOGEN 0.2 mg/dL (0.2 - 1)
[2025-01-01 12:00] LABS: BILIRUBIN,URINE NEGATIVE (NEGATIVE)
[2025-01-01 12:10] LABS: EPITHELIAL CELLS,URINE RARE /LPF
[2025-01-01 12:11] LABS: BACTERIA,URINE MODERATE /HPF; RBC,URINE >50 /HPF (0-5)
[2025-01-01] MEDS: ACETAMINOPHEN 325 MG TAB PO PRN (21:14)
[2025-01-01] MEDS: ZOLPIDEM TARTRATE 5 MG TAB PO PRN (21:16)
[2025-01-02] VITALS (8 sets, daily range): BP systolic 121–160; BP diastolic 69–92; PULSE 70–86; RESP 18–20; TEMP 97.2–98.1; O2SAT 95–100
[2025-01-02 08:58] LABS: ANION GAP 17.7 mmol/L (8-16); CALCIUM 9.5 mg/dL (8.4-10.2); CREATININE, SERUM 0.74 mg/dL (0.57-1.11); POTASSIUM 3.7 mmol/L (3.5-5.1)
[2025-01-02] MEDS: SODIUM CHLORIDE 1 GM TAB PO SCH (16:08)
[2025-01-03] VITALS: BP 133/73; PULSE 84; RESP 20; TEMP 98.7; O2SAT 99
[2025-01-03 04:00] VITALS: BP 146/92; PULSE 91; RESP 20; TEMP 98.6; O2SAT 100
[2025-01-03 06:05] VITALS: PULSE 74; RESP 20; O2SAT 98
[2025-01-03 06:29] LABS: ANION GAP 12.7 mmol/L (8-16); CREATININE, SERUM 0.71 mg/dL (0.57-1.11); MAGNESIUM 2.1 MG/DL (1.3-2.1); POTASSIUM 3.7 mmol/L (3.5-5.1)
[2025-01-03 08:00] VITALS: BP 148/86; PULSE 74; RESP 20; TEMP 98.6; O2SAT 98
[2025-01-03 08:59] VITALS: BP 148/86; PULSE 90; RESP 18; TEMP 97.7; O2SAT 100
[2025-01-03] MEDS ORDERED: COREG12.5 MG PO (09:12)
[2025-01-03] MEDS ORDERED: LORATADINE10 MG PO (09:12)
[2025-01-03] MEDS ORDERED: SINGULAIR10 MG PO (09:12)
[2025-01-03] MEDS ORDERED: SODIUM CHLORI1000 M2 PO (09:12)
[2025-01-03] MEDS ORDERED: CEFPODOXIME PR200 MG PEG (09:12)
[2025-01-03] MEDS ORDERED: FUROSEMIDE40 MG PO (09:12)
[2025-01-03] MEDS ORDERED: BENZONATATE100 MG PO (09:12)
[2025-01-03] MEDS ORDERED: SODIUM BICARBO650 MG PO (09:12)
[2025-01-03 12:58] VITALS: BP 149/90; PULSE 91; RESP 18; TEMP 98; O2SAT 100
== END 2025-01-03 14:45 | disposition home or self-care (01) | DRG 291 ==
LOC: ER 23:39 → ERHOLD 12-31 02:24 → MED/SURG2 12-31 02:48
PROVIDERS: ADMIT Internal Medicine; ATTEND Internal Medicine
DX: I11.0 Hypertensive heart disease with heart failure (principal); I50.31 Acute diastolic (congestive) heart failure; E87.1 Hypo-osmolality and hyponatremia; N39.0 Urinary tract infection, site not specified; E87.20 Acidosis, unspecified; B96.89 Other specified bacterial agents as the cause of diseases classified elsewhere; H92.02 Otalgia, left ear; E11.9 Type 2 diabetes mellitus without complications; Z79.84 Long term (current) use of oral hypoglycemic drugs; M25.512 Pain in left shoulder; R53.81 Other malaise; Z86.16 Personal history of COVID-19; Z87.01 Personal history of pneumonia (recurrent); Z79.899 Other long term (current) drug therapy; Z79.52 Long term (current) use of systemic steroids
CPT/HCPCS: 36415; 70450; 71045; 80048; 80053; 80061; 81001; 82550; 82948; 83036; 83735; 83880; 84100; 84295; 84484; 85025; 87086; 87186; 93005; 93306; 94799; 99284; J0696; J1650; J1940; J2405

== ENCOUNTER 2025-02-10 11:18 | Observation (INO) | payer MEDICARE ==
[2025-02-08 10:45] LABS: BASOPHILS # (AUTO) 0.1 (0.0-0.1); EOSINOPHILS # (AUTO) 0.1 (0.0-0.4); EOSINOPHILS % 0.7 % (0.0-6.0); HEMATOCRIT 42.6 % (34.2-44.1); HEMOGLOBIN 13.9 g/dL (12.0-16.0); LYMPHOCYTES # (AUTO) 1.8 (1.0-3.2); LYMPHOCYTES % 25.4 % (18.0-39.1); MEAN CORPUSCULAR HGB CONC 32.6 g/dL (31-35); MEAN CORPUSCULAR VOLUME 94.9 fL (81-99); MONOCYTES # (AUTO) 0.4 (0.2-0.8); MONOCYTES % 6.3 % (4.4-11.3); NEUTROPHILS # (AUTO) 4.6 (2.1-6.9); NEUTROPHILS % 66.3 % (38.7-80.0); PLATELET COUNT 242 x10e3/uL (140-360); RED BLOOD COUNT 4.49 x10e6/uL (3.6-5.1); RED CELL DISTRIBUTION WIDTH 11.9 % (11.7-14.4); WHITE BLOOD COUNT 6.97 x10e3/uL (4.8-10.8)
[2025-02-08 11:52] LABS: ANION GAP 13.7 mmol/L (8-16); CALCIUM 9.2 mg/dL (8.4-10.2); CREATININE, SERUM 0.78 mg/dL (0.57-1.11); POTASSIUM 4.7 mmol/L (3.5-5.1)
[~2025-02-10] VITALS: Ht 162.6 cm; Wt 84.0 kg
[~2025-02-10 11:18] MED LIST changes: +BENZONATATE100 MG PO; +CEFPODOXIME PR200 MG PEG; +COREG12.5 MG PO; +FUROSEMIDE40 MG PO; +KETOROLAC60 MG/2 ML PO; +LISINOPRIL10 MG PO; +LORATADINE10 MG PO; +NITROFURANTOIN100 MG PO; +PRAVASTATIN SOD40 MG PO; +SINGULAIR10 MG PO; +SODIUM BICARBO650 MG PO; +SODIUM CHLORI1000 M2 PO; +VESICARE5 MG PO; +ZEBETA10 MG PO
[2025-02-10] MEDS: GENTAMICIN 80MG/NS 100 ML 200 ML IV ONE (12:14)
[2025-02-10] MEDS: CLINDAMYCIN 600MG / 50ML 50 ML IV ONE (12:15)
[2025-02-10] MEDS: PIPERACILLIN/TAZOBACTAM 3.375 GM VIAL ONE (12:16)
[2025-02-10] MEDS: SODIUM CHLORIDE 0.9% 1000ML 1,000 ML ONE (12:16)
[2025-02-10] MEDS ORDERED: SEVOFLURANE INHAL SOLN 250 ML PEN BTL ONE (12:29)
[2025-02-10] MEDS ORDERED: PROPOFOL IV EMULSION 10 MG/ML 20 ML VIAL ONE (12:29)
[2025-02-10] MEDS ORDERED: ACETAMINOPHEN 1000 MG/100 ML 100 ML IV ONE (12:29)
[2025-02-10] MEDS ORDERED: FENTANYL CITRATE/PF 100MCG/2 ML INJ ONE (12:29)
[2025-02-10] MEDS ORDERED: LIDOCAINE HCL 2% LOCAL INJ 5 ML SDV VIAL INJ ONE (12:29)
[2025-02-10] MEDS ORDERED: DEXAMETHASONE SOD PHOS INJ 4 MG/ML SDV ONE (12:30)
[2025-02-10] MEDS ORDERED: ONDANSETRON HCL INJ 2MG/ML 2ML 2 MG/ML VIAL ONE (12:30)
[2025-02-10] MEDS ORDERED: FAMOTIDINE 20 MG/2 ML VIAL IV ONE (12:30)
[2025-02-10] MEDS ORDERED: ROCURONIUM BROMIDE 1 ML IV ONE (13:18)
[2025-02-10] MEDS ORDERED: EPHEDRINE SULFATE INJ 50 MG/ML VIAL ONE (14:16)
[2025-02-10] MEDS ORDERED: SUGAMMADEX SODIUM 200 MG/2 ML VIAL IV ONE (15:08)
[2025-02-10] MEDS ORDERED: Morphine 2mg Syringe 2 MG/ML SYR IV PRN (16:30)
[2025-02-10] MEDS ORDERED: DIPHENHYDRAMINE HCL 25 MG CAP PO PRN (16:30)
[2025-02-10] MEDS ORDERED: PHENAZOPYRIDINE HCL 100 MG TAB PO PRN (16:30)
[2025-02-10] MEDS ORDERED: ACETAMINOPHEN/CODEINE 300MG - 30MG TAB PO PRN (16:30)
[2025-02-10] MEDS ORDERED: ACETAMINOPHEN 1000 MG/100 ML IV PRN (16:30)
[2025-02-10] MEDS ORDERED: ONDANSETRON HCL INJ 2MG/ML 2ML 2 MG/ML VIAL IV PRN (16:30)
[2025-02-10 16:50] LABS: BASOPHILS % 0.4 % (0.0-1.0); EOSINOPHILS % 0.1 % (0.0-6.0); HEMOGLOBIN 13.5 g/dL (12.0-16.0); LYMPHOCYTES # (AUTO) 1.2 (1.0-3.2); LYMPHOCYTES % 12.8 % (18.0-39.1); MEAN CORPUSCULAR HEMOGLOBIN 31.3 pg (28-32); MEAN CORPUSCULAR HGB CONC 32.9 g/dL (31-35); MEAN CORPUSCULAR VOLUME 94.9 fL (81-99); MONOCYTES # (AUTO) 0.1 (0.2-0.8); MONOCYTES % 1.2 % (4.4-11.3); NEUTROPHILS # (AUTO) 7.8 (2.1-6.9); NEUTROPHILS % 85.3 % (38.7-80.0); PLATELET COUNT 253 x10e3/uL (140-360); RED BLOOD COUNT 4.32 x10e6/uL (3.6-5.1); RED CELL DISTRIBUTION WIDTH 11.9 % (11.7-14.4); WHITE BLOOD COUNT 9.09 x10e3/uL (4.8-10.8)
[2025-02-10 17:05] LABS: ANION GAP 14.3 mmol/L (8-16); CALCIUM 8.8 mg/dL (8.4-10.2); CREATININE, SERUM 0.75 mg/dL (0.57-1.11); POTASSIUM 4.3 mmol/L (3.5-5.1)
[2025-02-10 17:23] VITALS: BP 127/71; PULSE 70; RESP 18; TEMP 98; O2SAT 96
[2025-02-10 17:30] VITALS: BP 127/71; PULSE 70; RESP 18; TEMP 98; O2SAT 96
[2025-02-10] MEDS: SODIUM CHLORIDE 0.9% 1000ML 1,000 ML IV SCH (18:06)
[2025-02-10] MEDS: SENNA-S TABLET PO SCH (18:07)
[2025-02-10 20:00] VITALS: BP 119/66; PULSE 72; RESP 18; TEMP 97.5; O2SAT 100
[2025-02-10 21:00] VITALS: BP 119/66; PULSE 72; RESP 18; TEMP 97.5; O2SAT 100
[2025-02-10] MEDS: Clindamycin INJ 300 MG/50 ML 50 ML IV SCH (21:57)
[2025-02-11] VITALS (7 sets, daily range): BP systolic 109–124; BP diastolic 60–71; PULSE 74–81; RESP 17–19; TEMP 97.6–98.2; O2SAT 96–100
[2025-02-11 05:17] LABS: BASOPHILS % 0.2 % (0.0-1.0); HEMATOCRIT 35.1 % (34.2-44.1); HEMOGLOBIN 11.6 g/dL (12.0-16.0); LYMPHOCYTES % 7.7 % (18.0-39.1); MEAN CORPUSCULAR HEMOGLOBIN 30.9 pg (28-32); MEAN CORPUSCULAR VOLUME 93.4 fL (81-99); MONOCYTES # (AUTO) 0.5 (0.2-0.8); NEUTROPHILS # (AUTO) 11.4 (2.1-6.9); NEUTROPHILS % 87.6 % (38.7-80.0); PLATELET COUNT 236 x10e3/uL (140-360); RED BLOOD COUNT 3.76 x10e6/uL (3.6-5.1); RED CELL DISTRIBUTION WIDTH 11.9 % (11.7-14.4)
[2025-02-11 05:49] LABS: ANION GAP 14.5 mmol/L (8-16); CALCIUM 8.4 mg/dL (8.4-10.2); CREATININE, SERUM 0.68 mg/dL (0.57-1.11); POTASSIUM 4.5 mmol/L (3.5-5.1)
[2025-02-11] MEDS ORDERED: ONDANSETRON HCL 4 MG ORAL DISINTEGRATING TAB PO PRN (11:15)
== END 2025-02-11 16:14 | disposition home or self-care (01) ==
LOC: OR 11:18 → PACU V 15:51 → INTOOBSV 15:51 → MED/SURG2 17:22 → UNDODISOB 02-11 14:26
PROVIDERS: ADMIT Urology; ATTEND Urology
DX: N81.10 Cystocele, unspecified (principal); N39.0 Urinary tract infection, site not specified; N39.3 Stress incontinence (female) (male); N81.89 Other female genital prolapse; N81.6 Rectocele; N36.41 Hypermobility of urethra; N95.2 Postmenopausal atrophic vaginitis; N13.30 Unspecified hydronephrosis; R35.1 Nocturia; N32.81 Overactive bladder; G89.18 Other acute postprocedural pain; Z96.0 Presence of urogenital implants; I10 Essential (primary) hypertension; E78.5 Hyperlipidemia, unspecified; J45.909 Unspecified asthma, uncomplicated; M06.9 Rheumatoid arthritis, unspecified; M19.90 Unspecified osteoarthritis, unspecified site; K57.90 Diverticulosis of intestine, part unspecified, without perforation or abscess without bleeding; E66.9 Obesity, unspecified; Z01.812 Encounter for preprocedural laboratory examination; Z79.899 Other long term (current) drug therapy; Z68.33 Body mass index [BMI] 33.0-33.9, adult; Z86.711 Personal history of pulmonary embolism
CPT/HCPCS: 36415 ×3; 57240; 57288; 80048 ×3; 83735; 85025 ×3; 94799 ×2; C1762; G0378 ×2; J0131; J1100; J1580; J2003; J2405; J2543 ×2; J2704; J3010; J7030

== ENCOUNTER 2025-02-13 08:58 | Emergency (ER) | payer MEDICARE ==
[~2025-02-13] VITALS: Ht 160 cm; Wt 83.9 kg
[2025-02-13 09:37] VITALS: PULSE 82; RESP 17; TEMP 98.4; O2SAT 99
== END 2025-02-13 09:30 | disposition home or self-care (01) ==
LOC: ER 09:08
DX: Z46.6 Encounter for fitting and adjustment of urinary device (principal); I10 Essential (primary) hypertension; E78.5 Hyperlipidemia, unspecified; J45.909 Unspecified asthma, uncomplicated
CPT/HCPCS: 99283

== ENCOUNTER → 2025-04-20 | Outpatient (REF) | payer MEDICARE ==
[~2025-04-20] MED LIST changes: +CEPHALEXIN500 MG PO; +FLUCONAZOLE100 MG PO
== END ==
LOC: RAD 08:00 → EDSTATUS 04-21 14:00
PROVIDERS: ATTEND Urology
DX: Z01.818 Encounter for other preprocedural examination (principal); T19.1XXA Foreign body in bladder, initial encounter; R80.9 Proteinuria, unspecified; N32.81 Overactive bladder; R35.1 Nocturia; N13.30 Unspecified hydronephrosis; N39.0 Urinary tract infection, site not specified; N95.2 Postmenopausal atrophic vaginitis; N63.41 Unspecified lump in right breast, subareolar
CPT/HCPCS: 71046; 74018

== ENCOUNTER → 2025-04-21 | Day surgery (SDC) | payer MEDICARE ==
[2025-04-20 15:24] LABS: BASOPHILS # (AUTO) 0.1 (0.0-0.1); BASOPHILS % 0.6 % (0.0-1.0); EOSINOPHILS # (AUTO) 0.2 (0.0-0.4); HEMATOCRIT 37.6 % (34.2-44.1); HEMOGLOBIN 12.4 g/dL (12.0-16.0); LYMPHOCYTES # (AUTO) 2.2 (1.0-3.2); LYMPHOCYTES % 27.6 % (18.0-39.1); MEAN CORPUSCULAR HEMOGLOBIN 30.5 pg (28-32); MEAN CORPUSCULAR VOLUME 92.4 fL (81-99); MONOCYTES # (AUTO) 0.5 (0.2-0.8); MONOCYTES % 5.6 % (4.4-11.3); NEUTROPHILS # (AUTO) 5.1 (2.1-6.9); NEUTROPHILS % 63.9 % (38.7-80.0); PLATELET COUNT 266 x10e3/uL (140-360); RED BLOOD COUNT 4.07 x10e6/uL (3.6-5.1); RED CELL DISTRIBUTION WIDTH 12.4 % (11.7-14.4); WHITE BLOOD COUNT 7.97 x10e3/uL (4.8-10.8)
[2025-04-20 15:45] LABS: CALCIUM 8.9 mg/dL (8.4-10.2); CREATININE, SERUM 0.69 mg/dL (0.57-1.11)
[~2025-04-21] MED LIST changes: +ACETAMINOPHEN 1000 MG/100 ML 100 ML IV ONE; +CALCIUM CHLORIDE 10% SYRINGE 10 ML IV ONE; +DEXAMETHASONE SOD PHOS INJ 4 MG/ML SDV ONE; +EPHEDRINE SULFATE INJ 50 MG/ML VIAL ONE; +FENTANYL CITRATE/PF 100MCG/2 ML INJ ONE; +LEVOCETIRIZINE D5 MG PO; +LIDOCAINE HCL 2% LOCAL INJ 5 ML SDV VIAL INJ ONE; +ONDANSETRON HCL INJ 2MG/ML 2ML 2 MG/ML VIAL ONE; +PROPOFOL IV EMULSION 10 MG/ML 20 ML VIAL ONE; +SEVOFLURANE INHAL SOLN 250 ML PEN BTL ONE; +ZESTRIL10 MG PO
[2025-04-21] MEDS: SODIUM CHLORIDE 0.9% 1000ML 1,000 ML ONE (07:15)
[2025-04-21] MEDS: GENTAMICIN 80MG/NS 100 ML 200 ML IV ONE (07:17)
[2025-04-21 12:07] VITALS: BP 141/98; PULSE 76; RESP 16; O2SAT 95
== END | disposition home or self-care (01) ==
LOC: OR 06:42 → MERGE 06:46 → OR 06:46
PROVIDERS: ATTEND Urology
DX: N13.30 Unspecified hydronephrosis (principal); N13.5 Crossing vessel and stricture of ureter without hydronephrosis; Z46.6 Encounter for fitting and adjustment of urinary device; N81.6 Rectocele; N95.2 Postmenopausal atrophic vaginitis; N81.10 Cystocele, unspecified; N81.89 Other female genital prolapse; N36.41 Hypermobility of urethra; N39.0 Urinary tract infection, site not specified; R35.1 Nocturia; N32.81 Overactive bladder; R80.9 Proteinuria, unspecified; J45.909 Unspecified asthma, uncomplicated; I10 Essential (primary) hypertension; E78.5 Hyperlipidemia, unspecified; K57.90 Diverticulosis of intestine, part unspecified, without perforation or abscess without bleeding; M06.9 Rheumatoid arthritis, unspecified; M19.90 Unspecified osteoarthritis, unspecified site; Z01.810 Encounter for preprocedural cardiovascular examination; Z01.812 Encounter for preprocedural laboratory examination; Z79.899 Other long term (current) drug therapy; Z68.33 Body mass index [BMI] 33.0-33.9, adult
CPT/HCPCS: 36415; 52332; 52351; 74018; 74420; 80048; 85025; 87086; 87186; 93005; C1758; C1769; C2617; J0131; J1100; J1580; J2003; J2405; J2704; J3010; J7030